=== PATIENT | male | born 1990 | race Caucasian/White ===

== ENCOUNTER 2021-07-25 00:24 | Emergency (ER) | payer OTHER ==
[~2021-07-25] VITALS: Ht 177.8 cm; Wt 54.4 kg
--- NOTE | 2021-07-25 00:30 | NUR ---
pt bib ra, c/o anxiety states he took tobacco and mj at home. pt a/o x3 denies pain or sob. Dr. Beckwith at bedside for MSE.
[2021-07-25] MEDS ORDERED: HALOPERIDOL LACTATE 5 MG/1 ML VIAL IV ONE (00:45)
[2021-07-25] MEDS ORDERED: LORAZEPAM 2 MG/1 ML VIAL IV ONE (00:45)
--- NOTE | 2021-07-25 00:46 | NUR ---
Xray at bedside.
[2021-07-25 01:17] LABS: HEMATOCRIT 37.2 % (36.7-47.1); MEAN CORPUSCULAR HEMOGLOBIN 27.7 uug (23.8-33.4); MEAN CORPUSCULAR VOLUME 84.7 fL (73.0-96.2); PLATELET COUNT (AUTO) 193 K/uL (152-348)
[2021-07-25] MEDS ORDERED: LORAZEPAM 2 MG/1 ML VIAL ONE (01:19)
[2021-07-25] MEDS ORDERED: HALOPERIDOL LACTATE 5 MG/1 ML VIAL ONE (01:20)
[2021-07-25 01:22] LABS: CARBON DIOXIDE 27 mmol/L (21-32); CHLORIDE 99 mmol/L (98-107); CREATININE 1.1 mg/dL (0.6-1.3); GLUCOSE 155 mg/dL (74-106); POTASSIUM 3.4 mmol/L (3.5-5.1); UREA NITROGEN, BLOOD 18 mg/dL (7-18)
[2021-07-25 01:34] LABS: ALANINE AMINOTRANSFERASE 20 U/L (16-63); ALKALINE PHOSPHATASE 78 U/L (50-136); ASPARTATE AMINOTRANSFERASE 18 U/L (15-37); BILIRUBIN,DIRECT < 0.1 mg/dL (0.0-0.2); BILIRUBIN,TOTAL 0.4 mg/dL (0.2-1.0)
[2021-07-25] MEDS ORDERED: LORA-259 PO (01:48)
[2021-07-25] MEDS ORDERED: IV NORMAL SALINE 500 ML BAG IV ONE (02:00)
--- NOTE | 2021-07-25 02:02 | NUR ---
Patient discharged to home in stable condition. Written and verbal after care instructions given. Patient verbalizes understanding of instructions. Stressed follow up or return to ER for worsening s/s. pt amb without assist, steady gait. Denies pain or sob, denies any anxiety. d/c to his gf.
[2021-07-25 02:05] VITALS: BP 110/70
== END 2021-07-25 02:05 | disposition home or self-care (01) ==
LOC: ER 00:35
DX: F12.922 Cannabis use, unspecified with intoxication with perceptual disturbance (principal); F41.9 Anxiety disorder, unspecified; F12.929 Cannabis use, unspecified with intoxication, unspecified; F17.210 Nicotine dependence, cigarettes, uncomplicated; R03.0 Elevated blood-pressure reading, without diagnosis of hypertension; Z20.822 Contact with and (suspected) exposure to COVID-19
CPT/HCPCS: 36415; 71045; 80048; 80076; 83880; 84484; 85025; 87426; 93005; 96361; 96374; 96375; 99285; 99406; J1630; J2060; 70030-TC; A4663; J7040